=== PATIENT | female | born 1985 ===

== ENCOUNTER 2020-09-24 11:00 | Inpatient (IN) | payer OTHER ==
[~2020-09-24] VITALS: Ht 160 cm; Wt 102.1 kg
[2020-09-24] MEDS ORDERED: COZAAR50 MG PO (14:37)
[2020-09-24] MEDS ORDERED: IRON GLYCINATE29 MG PO (14:37)
[2020-09-24] MEDS ORDERED: CLARITIN10 M1 PO (14:38)
[2020-10-03] MEDS ORDERED: CODE1TAB37 PO (10:54)
== END 2020-10-03 11:43 | disposition home or self-care (01) | DRG 743 ==
LOC: SURH 09-30 11:00 → O/R 09-30 11:48 → SURG 09-30 11:48
PROVIDERS: ADMIT Obstetrics & Gynecology; ATTEND Obstetrics & Gynecology
PROC: 0TJB8ZZ Inspection of Bladder, Via Natural or Artificial Opening Endoscopic (ICD-10-PCS; 2020-09-30)
PROC: 0UT90ZZ Resection of Uterus, Open Approach (ICD-10-PCS; principal; 2020-09-30 11:45)
DX: D25.1 Intramural leiomyoma of uterus (principal); N81.11 Cystocele, midline; N92.0 Excessive and frequent menstruation with regular cycle; N94.5 Secondary dysmenorrhea